=== PATIENT | male | born 1970 | race African-American/Black ===

== ENCOUNTER 2022-11-25 15:02 | Emergency (ER) | payer MEDICAID, OTHER ==
[~2022-11-25] VITALS: Ht 182.9 cm; Wt 117.1 kg
[2022-11-25 15:50] VITALS: BP 119/52; PULSE 82; RESP 16; TEMP 97.2; O2SAT 97
[2022-11-25] MEDS ORDERED: METH-1182 PO (17:15)
[2022-11-25] MEDS ORDERED: IBUP-1456 PO (17:15)
== END 2022-11-25 17:37 | disposition home or self-care (01) ==
LOC: ER 15:02
DX: S63.92XA Sprain of unspecified part of left wrist and hand, initial encounter (principal); S39.012A Strain of muscle, fascia and tendon of lower back, initial encounter; V49.88XA Car occupant (driver) (passenger) injured in other specified transport accidents, initial encounter; Y93.89 Activity, other specified; Y92.89 Other specified places as the place of occurrence of the external cause; Y99.8 Other external cause status
CPT/HCPCS: 72100; 73130

== ENCOUNTER 2023-09-09 17:20 | Emergency (ER) | payer MEDICAID, OTHER ==
[~2023-09-09] VITALS: Ht 182.9 cm; Wt 115.8 kg
[~2023-09-09 17:20] MED LIST: IBUP-1456 PO; METH-1182 PO
[2023-09-09 18:51] LABS: Urine Bacteria None Seen /hpf (None Seen)
[2023-09-09 19:00] LABS: Basophils # (auto) 0 10 ^3/uL (0-0.2); Basophils % (auto) 0.7 % (0.0-2.0); Eosinophils # (auto) 0.1 10 ^3/uL (0-0.8); Eosinophils % (auto) 1.7 % (0.0-7.0); Hematocrit 41.5 % (41.0-53.0); Hemoglobin 13.2 g/dL (13.5-17.5); Lymphocytes # (auto) 2.4 10 ^3/uL (0.4-5.4); Lymphocytes % (auto) 47.7 % (10.0-50.0); Mean Corpuscular Hemoglobin 23.4 pg (28.0-32.0); Mean Corpuscular Hgb Conc. 31.8 g/dL (32.0-36.0); Mean Corpuscular Volume 73.6 fL (80.0-100.0); Monocytes # (auto) 0.5 10 ^3/uL (0-1.3); Monocytes % (auto) 10.4 % (0.0-12.0); Neutrophils # (auto) 1.9 10 ^3/uL (1.6-8.6); Neutrophils % (auto) 39.5 % (37.0-80.0); Nucleated Red Blood Cells % 0.2 %; Red Blood Cells 5.64 10^6/uL (4.5-5.90); Red Cell Distribution Width 14.9 % (11.8-14.3); White Blood Cell 4.9 10^3/uL (4.4-10.8)
[2023-09-09 19:03] LABS: Urine Blood Negative /uL (Negative); Urine Clarity Clear (Clear); Urine Color Light-Yellow (Yellow); Urine Mucus FEW (None Seen); Urine Protein, UAD TRACE (Negative); Urine Specific Gravity 1.022 (1.001-1.035); Urine Urobilinogen Normal (Negative); Urine WBC <1 /hpf (0 - 3); Urine pH 5.5 (5.0-9.0)
[2023-09-09 19:06] LABS: Chloride 109 mmol/L (98-107); Potassium 4.1 mmol/L (3.5-5.1); Sodium 142 mmol/L (136-145)
[2023-09-09 19:07] LABS: Anion Gap 3 (5-15); Calcium 9.2 mg/dL (8.5-10.1); Carbon Dioxide 30 mmol/L (20-30)
[2023-09-09 19:12] LABS: BUN/Creatinine Ratio 8.5 (10.0-20.0); Blood Urea Nitrogen 10 mg/dL (9-23); Glucose 74 mg/dL (74-106)
[2023-09-09 19:54] VITALS: BP 142/85; PULSE 56; RESP 19; TEMP 97.9; O2SAT 98
== END 2023-09-09 19:56 | disposition home or self-care (01) ==
LOC: ER 17:20
DX: K46.9 Unspecified abdominal hernia without obstruction or gangrene (principal)
CPT/HCPCS: 36415; 80048; 81001; 85025

== ENCOUNTER 2024-04-25 06:06 | Emergency (ER) | payer OTHER ==
[~2024-04-25] VITALS: Ht 185.4 cm; Wt 118.8 kg
[2024-04-25 07:23] VITALS: BP 126/92; PULSE 90; RESP 18; TEMP 98.2; O2SAT 97
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
--- NOTE | 2024-04-25 07:55 | DVH ---
INDICATION: POST FALL COMPARISON: None TECHNIQUE:4 views of the thoracic spine were obtained. FINDINGS: The thoracic vertebral alignment is normal. The intervertebral disc spaces are well-maintained. No significant facet arthropathy is noted. No acute fracture, vertebral compression deformity or aggressive osseous lesions. The imaged thorax and abdomen are grossly unremarkable. IMPRESSION: No acute fracture.
--- NOTE | 2024-04-25 07:57 | DVH ---
INDICATION: FALL COMPARISON: XY LUMBAR SPINE 3 VIEW on DOS: 11/25/22 TECHNIQUE: 2 views of the lumbar spine were obtained. FINDINGS: The lumbar vertebral alignment is normal. The intervertebral disc spaces are well-maintained. No significant facet arthropathy is noted. No acute fracture, vertebral compression deformity or aggressive osseous lesions. The paravertebral soft tissues are grossly unremarkable. IMPRESSION: No acute fracture.
--- NOTE | 2024-04-25 07:59 | DVH ---
INDICATION: FALL X 2 WEEKS AGO COMPARISON: None TECHNIQUE: 4 views of the cervical spine were obtained. FINDINGS: The cervical vertebral alignment is normal. The predental space is normal. The intervertebral disc spaces are well-maintained. No significant facet arthropathy is noted. No acute fracture, vertebral compression deformity or aggressive osseous lesions. The imaged lung apices are unremarkable. IMPRESSION: No acute fracture.
== END 2024-04-25 08:18 | disposition home or self-care (01) ==
LOC: ER 06:06
DX: S16.1XXA Strain of muscle, fascia and tendon at neck level, initial encounter (principal); S39.012A Strain of muscle, fascia and tendon of lower back, initial encounter; S29.012A Strain of muscle and tendon of back wall of thorax, initial encounter; Z79.1 Long term (current) use of non-steroidal anti-inflammatories (NSAID); Z79.899 Other long term (current) drug therapy; W00.0XXA Fall on same level due to ice and snow, initial encounter; Y93.89 Activity, other specified; Y92.89 Other specified places as the place of occurrence of the external cause; Y99.8 Other external cause status
CPT/HCPCS: 72040; 72070; 72100